=== PATIENT | male | born 1965 | race African-American/Black ===

== ENCOUNTER 2019-10-29 14:51 | Emergency (ER) | payer SELFPAY ==
[2019-10-29 14:55] VITALS: TEMP 98; BMI 26.0
[2019-10-29] MEDS ORDERED: IBUPROFEN 400 MG TABLET (FP) PO ONE ×2 (14:58→15:09)
--- NOTE | 2019-10-29 15:07 | PDOC ---
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 He reports that at the time of onset he was bending over carrying two large heavy buckets. He has no other deficits. He denies IVDU but admits to smoking 1ppd. He denies any incontince, numbness, tinlging, wekaness, or difficulty walking. He denies any recent trauma. He has no other complaints. ROS GENERAL/CONSTITUTIONAL: No fever or chills. No weakness. HEAD, EYES, EARS, NOSE AND THROAT: No change in vision. No ear pain or discharge. No sore throat. CARDIOVASCULAR: No chest pain or shortness of breath RESPIRATORY: No cough, wheezing, or hemoptysis. GASTROINTESTINAL: No nausea, vomiting, diarrhea or constipation. GENITOURINARY: No dysuria, frequency, or change in urination. MUSCULOSKELETAL: + joint or muscle swelling or pain. No neck or back pain. SKIN: No rash NEUROLOGIC: No headache, vertigo, loss of consciousness, or change in strength/sensation. ENDOCRINE: No increased thirst. No abnormal weight change HEMATOLOGIC/LYMPHATIC: No anemia, easy bleeding, or history of blood clots. ALLERGIC/IMMUNOLOGIC: No hives or skin allergy. PE GENERAL: Awake, alert, and fully oriented, in no acute distress HEAD: No signs of trauma, normocephalic, atraumatic EYES: EOMI, sclera anicteric, conjunctiva clear ENT: oropharynx clear without exudates. Moist mucosa NECK: Normal ROM, supple LUNGS: No distress, speaks full sentences, clear to auscultation bilaterally HEART: Regular rate and rhythm, normal S1 and S2, no murmurs, rubs or gallops, peripheral pulses normal and equal bilaterally. BACK: + L paraspinal lumbar and lower thoracic ttp ABDOMEN: Soft, nontender. No guarding, no rebound. No masses EXTREMITIES : Normal inspection, Normal range of motion, no edema. No clubbing or cyanosis. NEUROLOGICAL: Cranial nerves II through XII grossly intact. 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 Consider MSK, less conssitent with herniation, stenossis, epidural abscess or hematoma. Patient has no deficits, no sensory changes, no incontinence. Will dose NSAID here with pcp f/u, time off work, home ibuprofen and strict return precautions Patient stable for discharge. Given follow up instructions and strict return precautions. Patient expressed understanding and agree to plan Negin Mcrae, PGY3 Emergency Medicine Past History - Medical History Allergies/Adverse Reactions: Allergies Allergy/AdvReac Type Severity Reaction Status Date / Time No Known Allergies Allergy Verified 10/29/19 14:52 Home Medications: Ambulatory Orders Ibuprofen 400 mg PO BID #10 tablet 10/29/19 Anemia: No COPD: No CHF: No - Psycho-Social/Smoking History Smoking History: Current every day smoker Number of Cigarettes Smoked Daily: 20 Information on smoking cessation initiated: Yes 'Breaking Loose' booklet given: 10/17/14 - Substance Abuse Hx (Audit-C & DAST Scrn) How often the patient has a drink containing alcohol: Never Score: In Men: 4 or > Positive; In Women: 3 or > Positive: 0 Screen Result (Pos requires Nsg. Audit-10AR): Negative In the last yr the pt used illegal drug/Rx for NonMed reason: No Score: Yes response is considered Positive: 0 Screen Result (Positive result requires Nsg. DAST-10): Negative *Physical Exam - Vital Signs Last Vital Signs Temp Pulse Resp BP Pulse Ox 98 F 84 17 171/114 H 100 10/29/19 14:52 10/29/19 14:52 10/29/19 14:52 10/29/19 14:52 10/29/19 14:52 Discharge - Discharge Information Problems reviewed: Yes Clinical Impression/Diagnosis: Lower back pain Condition: Stable - Additional Discharge Information Prescriptions: Ibuprofen 400 mg PO BID #10 tablet - Follow up/Referral - Patient Discharge Instructions Patient Printed Discharge Instructions: DI for Low Back Pain, DI for Muscle Strain Additional Instructions: You were seen in the ER for complaints of lower back pain. Your exam was most consistent with muscle strain. You were given ibuprofen in the ER. You are to follow up with your Primary Care Doctor for further care. You have a note for work. Take plenty of rest, ibuprofen and use heating pads and cold pads as needed. Return to the ER if you develop worsening back pain, changes in urination and stooling, numbing, tingling, weakness or any other concerning symptoms. - Post Discharge Activity Work/Back to School Note: Back to Work
--- NOTE | 2019-10-29 15:16 | PDOC ---
Attending Attestation - Resident Resident Name: Negin Mcrae - ED Attending Attestation I have performed the following: I have examined & evaluated the patient, The case was reviewed & discussed with the resident, I agree w/resident's findings & plan, Exceptions are as noted - HPI HPI: 10/29/19 15:10 54 yo M p/w L sided low back pain since today. Reports increased heavy lifting and workload at his job over the past 3-4 days. Deneis any numbness or weakness in extremities. No changes in bowel or bladder. No fevers. Denies h/o IVDU. No fevers. No other medical complaints. - Physicial Exam PE: 10/29/19 15:13 General: well appearing, NAD HEENT: NCAT Back: no midline tenderness, no paraspinal tenderness Extremities: warm and well perfused, no LE edema, strength 5/5 dorsiflexion/plantarflexion felxion/extension at knees and hips Neuro: Aox3, speech fluent, face symmetric, gait steady, no focal deficits - Medical Decision Making 10/29/19 15:14 54 yo M with likely msk back pain. No signs/symptoms concerning for cord compression or epidural abscess/hematoma. Plan: -motrin -d/c with return precautions, recommend supportive care at home and PMD f/u This clinical encounter is taking place during a federal and state health care emergency attributable to the novel [place] Virus pandemic. The [place] of the Department of Health and Human Services has declared, pursuant to the Public Health Service Act 319F-3 (42 U.S.C. 247d-6d), that a covered persons activities related to medical countermeasures against COVID-19 will be immune from liability under Federal and State law. Discharge - Discharge Information Problems reviewed: Yes Clinical Impression/Diagnosis: Lower back pain Condition: Stable - Admission No - Additional Discharge Information Prescriptions: Ibuprofen 400 mg PO BID #10 tablet - Follow up/Referral - Patient Discharge Instructions Patient Printed Discharge Instructions: DI for Low Back Pain, DI for Muscle Strain Additional Instructions: You were seen in the ER for complaints of lower back pain. Your exam was most consistent with muscle strain. You were given ibuprofen in the ER. You are to follow up with your Primary Care Doctor for further care. You have a note for work. Take plenty of rest, ibuprofen and use heating pads and cold pads as needed. Return to the ER if you develop worsening back pain, changes in urination and stooling, numbing, tingling, weakness or any other concerning symptoms. - Post Discharge Activity Work/Back to School Note: Back to Work
[2019-10-29 15:30] VITALS: BP 170/101; PULSE 83
== END 2019-10-29 15:28 ==
LOC: FER 14:51
DX: M54.5 Low back pain (principal)
CPT/HCPCS: 99283-25

== ENCOUNTER 2020-11-12 06:49 | Emergency (ER) | payer OTHER ==
[2020-11-12] MEDS ORDERED: ACETAMINOPHEN 500 MG TABLET (FP) PO ONE (06:53)
[2020-11-12] MEDS ORDERED: IBUPROFEN 600 MG TABLET (FP) PO ONE ×2 (07:09→07:12)
[2020-11-12 07:10] VITALS: BMI 27.9
[2020-11-12] MEDS ORDERED: ACETAMINOPHEN 325 MG TABLET (FP) ONE (07:12)
[2020-11-12] MEDS ORDERED: LISINOPRIL 10 MG TABLET PO ONE (08:37)
[2020-11-12] MEDS ORDERED: HYDROCHLOROTHIAZIDE 12.5 MG CAPSULE (FP) PO ONE (08:39)
[2020-11-12] MEDS ORDERED: LISINOPRIL 5 MG TABLET ONE (08:44)
[2020-11-12] MEDS ORDERED: HYDROCHLOROTHIAZIDE 25 MG TABLET (FP) ONE (08:44)
[2020-11-12 10:34] LABS: SARS COV-2 MOLECULAR Presumptive Positive (Negative)
[2020-11-12] MEDS ORDERED: CASIRIVIMAB/IMDEVIMAB 10 ML in SODIUM CHLORIDE 100 ML IVPB ONE (10:40)
[2020-11-12 12:03] LABS: EOS % 6.5 % (0-4.5); HEMATOCRIT 43.2 % (35.4-49); HEMOGLOBIN 14.8 GM/dl (11.7-16.9); LYMPH % 28.9 % (8-40); MCH 30.3 pg (25.7-33.7); MCHC 34.2 g/dl (32.0-35.9); MEAN CELL VOLUME 88.4 fl (80-96); MEAN PLT VOLUME 9.3 fl (7.5-11.1); MONO % 8.9 % (3.8-10.2); NEUT % 53.7 % (42.8-82.8); PLATELET COUNT 126 10^3/uL (134-434); RBC 4.88 M/mm3 (4.00-5.60); RDW 12.9 % (11.9-15.9); WHITE BLOOD COUNT 8.3 K/mm3 (4.0-10.8)
[2020-11-12 12:11] LABS: ALBUMIN 3.9 g/dl (3.4-5.0); BILIRUBIN,TOTAL 0.4 mg/dl (0.2-1); CALCIUM 8.8 mg/dl (8.5-10); CREATININE 1.1 mg/dl (0.55-1.3); TOT PROT 6.4 g/dl (6.4-8.2)
[2020-11-12 12:29] VITALS: TEMP 98.1
[2020-11-12 15:14] VITALS: BP 154/96; PULSE 52
[2020-11-13 09:07] LABS: SARS-CoV-2 NAA Detected (Not Detected)
== END 2020-11-12 15:20 | disposition home or self-care (01) ==
LOC: FER 06:49
DX: Z11.52 Encounter for screening for COVID-19 (principal)
CPT/HCPCS: 36415; 71045-TC-FY; 80053; 85025; 87804; 93005; 99284-25; C9803; M0240; Q0240; U0003; U0005

== ENCOUNTER 2022-05-06 22:27 | Inpatient (IN) | payer OTHER ==
[2022-05-06] MEDS ORDERED: dilTIAZem HCL 50 MG/10 ML - 10 ML VIAL IVPUSH ONE ×2 (22:37→22:48)
[2022-05-06] MEDS ORDERED: SODIUM CHLORIDE 0.9% 500 ML INFUS.BAG IV ONE (22:37)
[2022-05-06] MEDS ORDERED: dilTIAZem HCL 125 MG/25 ML - 25 ML VIAL ONE (22:42)
[2022-05-06] MEDS ORDERED: dilTIAZem HCL 50 MG/10 ML - 10 ML VIAL ONE (22:51)
[2022-05-06 23:03] LABS: HEMATOCRIT 47.4 % (35.4-49); HEMOGLOBIN 16.7 G/dL (11.7-16.9); MCH 30.3 pg (25.7-33.7); MCHC 35.2 g/dl (32.0-35.9); MEAN CELL VOLUME 86.1 fl (80-96); MEAN PLT VOLUME 9.2 fl (7.5-11.1); PLATELET COUNT 208.2 10^3/uL (134-434); RBC 5.51 10^6/uL (4.00-5.60); RDW 14.4 % (11.9-15.9); WHITE BLOOD COUNT 12.5 10^3/uL (4.0-10.8)
[2022-05-06 23:08] LABS: CALCIUM 9.1 mg/dl (8.5-10)
[2022-05-06 23:13] LABS: ALBUMIN 4.4 g/dl (3.4-5.0); BILIRUBIN,TOTAL 0.6 mg/dl (0.2-1); CREATININE 1.3 mg/dl (0.55-1.3); TOT PROT 7.3 g/dl (6.4-8.2)
[2022-05-06] MEDS ORDERED: dilTIAZem HCL 60 MG TABLET PO ONE (23:17)
[2022-05-06 23:22] LABS: INR 0.97 (0.83-1.09); PROTHROMBIN TIME (PATIENT) 11.1 SEC (9.7-13.0)
[2022-05-06] MEDS ORDERED: dilTIAZem HCL 30 MG TABLET ONE (23:22)
[2022-05-06 23:52] LABS: PLATELET ESTIMATE ADEQUATE
[2022-05-07 03:57] VITALS: BMI 29.7
[2022-05-07 09:02] LABS: HEMATOCRIT 42.6 % (35.4-49); HEMOGLOBIN 14.7 G/dL (11.7-16.9); MCH 29.6 pg (25.7-33.7); MCHC 34.4 g/dl (32.0-35.9); MEAN CELL VOLUME 86.1 fl (80-96); MEAN PLT VOLUME 9.8 fl (7.5-11.1); RBC 4.95 10^6/uL (4.00-5.60); RDW 14.8 % (11.9-15.9)
[2022-05-07] MEDS ORDERED: METOPROLOL TARTRATE 25 MG TABLET (FP) PO SCH (10:00)
[2022-05-07] MEDS ORDERED: APIXABAN 5 MG TABLET PO SCH (10:00)
[2022-05-07 10:01] LABS: PHOSPHOROUS 3.9 mg/dl (2.5-4.9)
[2022-05-07] MEDS ORDERED: ATORVASTATIN CA 80 MG TABLET (FP) PO ONE (11:21)
[2022-05-07] MEDS ORDERED: LISINOPRIL 20 MG TABLET PO SCH (11:30)
[2022-05-07] MEDS: ASPIRIN COATED 81 MG TABLET.EC PO SCH (11:57)
[2022-05-07 12:57] LABS: METHADONE, UR NEGATIVE (NEGATIVE)
[2022-05-07 12:58] LABS: COCAINE, UR NEGATIVE (NEGATIVE); OPIATES, URI NEGATIVE (NEGATIVE); PHENCYCLIDINE,URINE NEGATIVE (NEGATIVE); URINE BENZODIAZEPINES NEGATIVE (NEGATIVE)
[2022-05-07] MEDS ORDERED: LISINOPRIL 20 MG TABLET PO ONE (13:02)
[2022-05-07 13:03] LABS: URINE AMPHETAMINES NEGATIVE (NEGATIVE); URINE BARBITURATES NEGATIVE (NEGATIVE)
[2022-05-07] MEDS: METOPROLOL TARTRATE 50 MG TABLET (FP) PO SCH ×2 (17:10→22:36)
[2022-05-07] MEDS: ENOXAPARIN NA (PORCINE) 100 MG/1 ML DISP.SYRIN SQ SCH (22:37)
[2022-05-08 07:58] LABS: BASO % 0.7 % (0-2.0); EOS % 5.6 % (0-4.5); LYMPH % 41.6 % (8-40); MONO % 6.9 % (3.8-10.2); NEUT % 45.2 % (42.8-82.8)
[2022-05-08 08:09] LABS: CALCIUM 8.8 mg/dL (8.5-10.1)
[2022-05-08 08:13] LABS: CREATININE 1.2 mg/dL (0.55-1.3)
[2022-05-08 08:16] LABS: HEMATOCRIT 40.6 % (35.4-49); HEMOGLOBIN 13.7 GM/dL (11.7-16.9); MCH 28.9 pg (25.7-33.7); MCHC 33.8 g/dl (32.0-35.9); MEAN CELL VOLUME 85.7 fl (80-96); MEAN PLT VOLUME 9.6 fl (7.5-11.1); PLATELET COUNT 187 10^3/uL (134-434); RBC 4.74 M/mm3 (4.00-5.60); RDW 13.9 % (11.9-15.9); WHITE BLOOD COUNT 11.1 K/mm3 (4.0-10.0)
[2022-05-08 08:27] LABS: BLOOD UREA NITROGEN 14.3 mg/dL (7-18)
[2022-05-08] MEDS: ASPIRIN COATED 81 MG TABLET.EC PO SCH (09:51)
[2022-05-08] MEDS: METOPROLOL TARTRATE 50 MG TABLET (FP) PO SCH ×2 (09:51→21:55)
[2022-05-08] MEDS: LISINOPRIL 20 MG TABLET PO SCH (09:51)
[2022-05-08] MEDS: ENOXAPARIN NA (PORCINE) 100 MG/1 ML DISP.SYRIN SQ SCH ×2 (09:52→21:56)
[2022-05-08] MEDS ORDERED: amLODIPine BESYLATE 5 MG TABLET (FP) PO SCH (10:00)
[2022-05-08 13:03] LABS: ALBUMIN 3.4 g/dl (3.4-5.0); BILIRUBIN,TOTAL 0.6 mg/dL (0.2-1)
[2022-05-08] MEDS ORDERED: amLODIPine BESYLATE 5 MG TABLET (FP) PO ONE (15:59)
[2022-05-08] MEDS: ATORVASTATIN CA 80 MG TABLET (FP) PO SCH (21:55)
[2022-05-08] MEDS ORDERED: hydrALAZINE HCL 20 MG/ML VIAL IVPUSH ONE (23:45)
[2022-05-09] MEDS ORDERED: hydrALAZINE HCL 20 MG/ML VIAL IVPUSH ONE (01:37)
[2022-05-09] MEDS: amLODIPine BESYLATE 5 MG TABLET (FP) PO SCH (07:48)
[2022-05-09] MEDS ORDERED: REGADENOSON 0.4 MG/5 ML PRE-FILLED SYRINGE IVPUSH ONE ×2 (09:44→10:00)
[2022-05-09] MEDS ORDERED: amLODIPine BESYLATE 5 MG TABLET (FP) PO SCH (10:00)
[2022-05-09] MEDS: ENOXAPARIN NA (PORCINE) 100 MG/1 ML DISP.SYRIN SQ SCH (12:24)
[2022-05-09] MEDS: METOPROLOL TARTRATE 50 MG TABLET (FP) PO SCH ×2 (12:25→21:09)
[2022-05-09] MEDS: LISINOPRIL 20 MG TABLET PO SCH (12:25)
[2022-05-09] MEDS: ASPIRIN COATED 81 MG TABLET.EC PO SCH (12:25)
[2022-05-09] MEDS ORDERED: CHLORTHALIDONE 25 MG TABLET PO SCH (13:00)
[2022-05-09] MEDS: SPIRONOLACTONE 25 MG TABLET PO SCH (14:00)
[2022-05-09 19:16] LABS: BASO % 2.1 % (0-2.0); EOS % 4.9 % (0-4.5); HEMATOCRIT 46.1 % (35.4-49); HEMOGLOBIN 15.7 GM/dL (11.7-16.9); LYMPH % 29.8 % (8-40); MCH 29.2 pg (25.7-33.7); MCHC 34.1 g/dl (32.0-35.9); MEAN CELL VOLUME 85.8 fl (80-96); MEAN PLT VOLUME 10.1 fl (7.5-11.1); MONO % 6.1 % (3.8-10.2); NEUT % 57.1 % (42.8-82.8); PLATELET COUNT 221 10^3/uL (134-434); RBC 5.38 M/mm3 (4.00-5.60); RDW 13.9 % (11.9-15.9); WHITE BLOOD COUNT 12.2 K/mm3 (4.0-10.0)
[2022-05-09 19:38] LABS: CALCIUM 9.3 mg/dL (8.5-10.1)
[2022-05-09 19:39] LABS: BLOOD UREA NITROGEN 19.9 mg/dL (7-18)
[2022-05-09 19:41] LABS: CREATININE 1.3 mg/dL (0.55-1.3)
[2022-05-09 19:43] LABS: BILIRUBIN,TOTAL 0.5 mg/dL (0.2-1); TOT PROT 7.5 g/dl (6.4-8.2)
[2022-05-09 19:47] LABS: ALBUMIN 4.1 g/dl (3.4-5.0)
[2022-05-09] MEDS: ATORVASTATIN CA 80 MG TABLET (FP) PO SCH (21:09)
[2022-05-09] MEDS: APIXABAN 5 MG TABLET PO SCH (21:10)
[2022-05-10 07:59] LABS: MCH 29.3 pg (25.7-33.7); MCHC 34.2 g/dl (32.0-35.9); MEAN CELL VOLUME 85.8 fl (80-96); MEAN PLT VOLUME 9.7 fl (7.5-11.1); PLATELET COUNT 205 10^3/uL (134-434); RBC 5.13 M/mm3 (4.00-5.60)
[2022-05-10 08:20] LABS: BLOOD UREA NITROGEN 16.7 mg/dL (7-18); CALCIUM 8.8 mg/dL (8.5-10.1)
[2022-05-10 08:21] LABS: ALBUMIN 3.6 g/dl (3.4-5.0)
[2022-05-10 08:24] LABS: CREATININE 1.2 mg/dL (0.55-1.3)
[2022-05-10 08:25] LABS: BILIRUBIN,TOTAL 0.5 mg/dL (0.2-1); TOT PROT 6.6 g/dl (6.4-8.2)
[2022-05-10] MEDS: APIXABAN 5 MG TABLET PO SCH (09:18)
[2022-05-10] MEDS: LISINOPRIL 20 MG TABLET PO SCH (09:18)
[2022-05-10] MEDS: amLODIPine BESYLATE 5 MG TABLET (FP) PO SCH (09:21)
[2022-05-10] MEDS: SPIRONOLACTONE 25 MG TABLET PO SCH (09:22)
[2022-05-10 09:23] VITALS: BP 125/86; PULSE 18; TEMP 98.5
[2022-05-10 09:40] VITALS: RESP 18
[2022-05-10] MEDS ORDERED: ATORVASTATIN CA 40 MG TABLET (FP) PO SCH (10:16)
[2022-05-10] MEDS ORDERED: amLODIPine BESYLATE 10 MG TABLET (FP) PO SCH (10:22)
== END 2022-05-10 12:02 | disposition home or self-care (01) | DRG 199 ==
LOC: FER 22:27 → FM/S 05-07 01:43 → J4W 05-07 22:10
PROVIDERS: ADMIT Internal Medicine; ATTEND Internal Medicine
DX: I16.0 Hypertensive urgency (principal); I24.8 Other forms of acute ischemic heart disease; E78.5 Hyperlipidemia, unspecified; I48.91 Unspecified atrial fibrillation
CPT/HCPCS: 0241U-QW; 36415; 71045-TC-FY; 76775-TC; 76856-TC; 78452-TC; 80048; 80053; 80061; 80307; 81003; 81015; 82550; 82553; 83036; 83735; 84100; 84443; 84484; 85025; 85027; 85610; 93005; 93010; 93017; 93306-TC; 99285-25; A9502; J2785

== ENCOUNTER 2022-11-10 18:05 | Emergency (ER) | payer OTHER ==
[2022-11-10 18:12] VITALS: TEMP 100.5; BMI 29.7
[2022-11-10] MEDS ORDERED: ACETAMINOPHEN 1000 MG/100 ML BAG IVPB ONE (19:08)
[2022-11-10] MEDS ORDERED: SPIRONOLACTONE 25 MG TABLET PO ONE (19:17)
[2022-11-10] MEDS ORDERED: ATORVASTATIN CA 80 MG TABLET (FP) PO ONE (19:17)
[2022-11-10] MEDS ORDERED: hydrALAZINE HCL 50 MG TABLET (FP) PO ONE (19:20)
[2022-11-10] MEDS ORDERED: HYDROCHLOROTHIAZIDE 25 MG TABLET (FP) PO ONE (19:21)
[2022-11-10] MEDS ORDERED: VALSARTAN 160 MG TABLET PO ONE (19:21)
[2022-11-10] MEDS ORDERED: HYDROCHLOROTHIAZIDE 25 MG TABLET (FP) ONE (19:40)
[2022-11-10] MEDS ORDERED: ATORVASTATIN CA 80 MG TABLET (FP) ONE ×2 (19:40→19:41)
[2022-11-10] MEDS ORDERED: VALSARTAN 80 MG TABLET ONE (19:40)
[2022-11-10] MEDS ORDERED: ACETAMINOPHEN INJECTION 100 ML IVPB ONE (19:41)
[2022-11-10] MEDS ORDERED: SPIRONOLACTONE 25 MG TABLET ONE (19:41)
[2022-11-10] MEDS ORDERED: hydrALAZINE HCL 50 MG TABLET (FP) ONE (19:41)
[2022-11-10 20:03] VITALS: RESP 16
[2022-11-10 20:23] LABS: BASO % 0.8 % (0-2.0); HEMATOCRIT 47.8 % (35.4-49); HEMOGLOBIN 16.3 GM/dL (11.7-16.9); LYMPH % 10.4 % (8-40); MCH 29.3 pg (25.7-33.7); MCHC 34.2 g/dl (32.0-35.9); MEAN CELL VOLUME 85.7 fl (80-96); MEAN PLT VOLUME 9.9 fl (7.5-11.1); MONO % 14.8 % (3.8-10.2); PLATELET COUNT 167 10^3/uL (134-434); RBC 5.58 M/mm3 (4.00-5.60); WHITE BLOOD COUNT 9.4 K/mm3 (4.0-10.0)
[2022-11-10] MEDS ORDERED: METHOCARBAMOL 500 MG TABLET PO ONE (20:34)
[2022-11-10] MEDS ORDERED: hydrALAZINE HCL 20 MG/ML VIAL IVPUSH ONE (20:34)
[2022-11-10] MEDS ORDERED: LIDOCAINE 5% TOPICAL PATCH TP ONE (20:34)
[2022-11-10 20:35] LABS: POTASSIUM 3.9 mmol/L (3.5-5.1)
[2022-11-10 20:38] LABS: BLOOD UREA NITROGEN 13.2 mg/dL (7-18); CALCIUM 9.2 mg/dL (8.5-10.1)
[2022-11-10 20:41] LABS: CREATININE 1.5 mg/dL (0.55-1.3)
[2022-11-10 20:42] LABS: BILIRUBIN,TOTAL 0.3 mg/dL (0.2-1); TOT PROT 7.5 g/dl (6.4-8.2)
[2022-11-10] MEDS ORDERED: hydrALAZINE HCL 20 MG/ML VIAL ONE (20:50)
[2022-11-10] MEDS ORDERED: METHOCARBAMOL 500 MG TABLET ONE (20:50)
[2022-11-10] MEDS ORDERED: APIXABAN 5 MG TABLET ONE (20:50)
[2022-11-10] MEDS ORDERED: LIDOCAINE 5% TOPICAL PATCH ONE (20:51)
[2022-11-10 21:04] VITALS: BP 146/96; PULSE 80
[2022-11-10] MEDS ORDERED: SODIUM CHLORIDE 0.9% 500 ML INFUS.BAG IV ONE (21:12)
[2022-11-10] MEDS ORDERED: APIXABAN 5 MG TABLET PO SCH (22:00)
== END 2022-11-11 | disposition home or self-care (01) ==
LOC: JER 18:05
PROC: 3E033NZ Introduction of Analgesics, Hypnotics, Sedatives into Peripheral Vein, Percutaneous Approach (ICD-10-PCS; principal; 2022-11-10)
DX: R06.02 Shortness of breath (principal); M79.10 Myalgia, unspecified site; M54.50 Low back pain, unspecified; R10.9 Unspecified abdominal pain; I10 Essential (primary) hypertension; U07.1 COVID-19; R53.81 Other malaise; R53.1 Weakness; R00.2 Palpitations; R61 Generalized hyperhidrosis; R51.9 Headache, unspecified; G89.29 Other chronic pain; H04.209 Unspecified epiphora, unspecified side; R74.8 Abnormal levels of other serum enzymes; R79.89 Other specified abnormal findings of blood chemistry
CPT/HCPCS: 0241U-QW; 36415; 71046-TC-FY; 80053; 84484; 85025; 93005; 93010; 99285-25

== ENCOUNTER 2022-12-24 22:33 | Observation (INO) | payer OTHER ==
[2022-12-24 22:44] VITALS: BMI 28.7
[2022-12-24] MEDS ORDERED: ASPIRIN 81 MG CHEWABLE TABLETS PO ONE (22:51)
[2022-12-24] MEDS ORDERED: dilTIAZem HCL 50 MG/10 ML - 10 ML VIAL IVPUSH ONE (23:11)
[2022-12-24] MEDS ORDERED: dilTIAZem HCL 125 MG/25 ML - 25 ML VIAL ONE (23:17)
[2022-12-24] MEDS ORDERED: ASPIRIN 81 MG CHEWABLE TABLETS ONE (23:17)
[2022-12-24 23:55] LABS: BASO % 0.8 % (0-2.0); HEMATOCRIT 45.6 % (35.4-49); HEMOGLOBIN 15.7 GM/dL (11.7-16.9); LYMPH % 35.7 % (8-40); MCH 29.1 pg (25.7-33.7); MCHC 34.4 g/dl (32.0-35.9); MEAN CELL VOLUME 84.8 fl (80-96); MEAN PLT VOLUME 9.6 fl (7.5-11.1); MONO % 6.6 % (3.8-10.2); NEUT % 52.9 % (42.8-82.8); PLATELET COUNT 219 10^3/uL (134-434); RBC 5.38 M/mm3 (4.00-5.60); RDW 14.1 % (11.9-15.9); WHITE BLOOD COUNT 12.5 K/mm3 (4.0-10.0)
[2022-12-25 00:06] LABS: INR 0.96 (0.83-1.09); PROTHROMBIN TIME (PATIENT) 11.1 SEC (9.7-13.0)
[2022-12-25 00:08] LABS: ACTIVATED PTT 30.2 SECONDS (25.2-36.5)
[2022-12-25 00:29] LABS: POTASSIUM 3.8 mmol/L (3.5-5.1)
[2022-12-25 00:31] LABS: CALCIUM 8.7 mg/dL (8.5-10.1); MAGNESIUM 1.9 mg/dL (1.8-2.4)
[2022-12-25 00:33] LABS: ALBUMIN 3.5 g/dl (3.4-5.0); BLOOD UREA NITROGEN 19.7 mg/dL (7-18)
[2022-12-25 00:35] LABS: CREATININE 1.4 mg/dL (0.55-1.3)
[2022-12-25 00:36] LABS: TOT PROT 6.8 g/dl (6.4-8.2)
[2022-12-25 00:37] LABS: BILIRUBIN,TOTAL 0.2 mg/dL (0.2-1)
[2022-12-25] MEDS ORDERED: ATORVASTATIN CA 40 MG TABLET (FP) PO ONE (01:34)
[2022-12-25] MEDS ORDERED: APIXABAN 2.5 MG TABLET PO ONE (01:36)
[2022-12-25] MEDS ORDERED: APIXABAN 2.5 MG TABLET ONE (01:47)
[2022-12-25] MEDS ORDERED: ATORVASTATIN CA 40 MG TABLET (FP) ONE (01:47)
[2022-12-25] MEDS ORDERED: SODIUM CHLORIDE 1,000 ML IV SCH (06:15)
[2022-12-25 06:50] LABS: BASO % 1.1 % (0-2.0); EOS % 4.5 % (0-4.5); HEMATOCRIT 41.8 % (35.4-49); LYMPH % 32.7 % (8-40); MCH 28.9 pg (25.7-33.7); MCHC 33.4 g/dl (32.0-35.9); MEAN CELL VOLUME 86.4 fl (80-96); MONO % 7.9 % (3.8-10.2); NEUT % 53.8 % (42.8-82.8); PLATELET COUNT 202 10^3/uL (134-434); RBC 4.84 M/mm3 (4.00-5.60); RDW 14.1 % (11.9-15.9); WHITE BLOOD COUNT 10.9 K/mm3 (4.0-10.0)
[2022-12-25] MEDS ORDERED: INSULIN SLIDING SCALE (NOVOLOG) 1 VIAL SQ SCH (07:00)
[2022-12-25 07:11] LABS: POTASSIUM 4.2 mmol/L (3.5-5.1)
[2022-12-25 07:13] LABS: BLOOD UREA NITROGEN 18.2 mg/dL (7-18); CALCIUM 8.5 mg/dL (8.5-10.1); MAGNESIUM 1.8 mg/dL (1.8-2.4)
[2022-12-25 07:14] LABS: ALBUMIN 3.3 g/dl (3.4-5.0)
[2022-12-25 07:16] LABS: PHOSPHOROUS 3.9 mg/dL (2.5-4.9)
[2022-12-25 07:17] LABS: CREATININE 1.3 mg/dL (0.55-1.3)
[2022-12-25 07:18] LABS: BILIRUBIN,TOTAL 0.2 mg/dL (0.2-1); TOT PROT 6.4 g/dl (6.4-8.2)
[2022-12-25 08:54] VITALS: PULSE 66; RESP 20; TEMP 97.7
[2022-12-25 08:55] LABS: PH,URINE 5.5 (5.0-8.0); URINE APPEARANCE Clear; URINE BILIRUBIN Negative (NEGATIVE); URINE COLOR Yellow; URINE GLUCOSE (UA) Negative (NEGATIVE); URINE KETONE Negative (NEGATIVE); URINE LEUK ESTERASE Negative (NEGATIVE); URINE NITRITE Negative (NEGATIVE); URINE PROTEIN Negative (NEGATIVE); URINE UROBILINOGEN 0.2 mg/dL (0.2-1.0)
[2022-12-25] MEDS ORDERED: amLODIPine BESYLATE 10 MG TABLET (FP) PO SCH (10:00)
[2022-12-25] MEDS ORDERED: NICOTINE 14 MG/24 HOURS TOPICAL PATCH TD SCH (10:00)
[2022-12-25] MEDS ORDERED: APIXABAN 5 MG TABLET PO SCH (10:00)
[2022-12-25] MEDS ORDERED: LISINOPRIL 20 MG TABLET PO SCH (10:00)
[2022-12-25] MEDS ORDERED: SPIRONOLACTONE 25 MG TABLET PO SCH (10:00)
[2022-12-25 11:00] VITALS: BP 165/111
[2022-12-25] MEDS ORDERED: LEVALBUTEROL HCL 0.63 MG/3 ML VIAL.NEB. IH PRN (12:43)
[2022-12-25] MEDS ORDERED: hydrALAZINE HCL 20 MG/ML VIAL IVPUSH PRN (12:44)
[2022-12-25] MEDS ORDERED: predniSONE 20 MG TABLET (UD) PO SCH (12:45)
[2022-12-25] MEDS ORDERED: hydrALAZINE HCL 50 MG TABLET (FP) PO SCH (14:00)
[2022-12-25] MEDS ORDERED: IPRATROPIUM BR 0.02% 0.5 MG/2.5 ML VIAL.NEB. NEB SCH (16:00)
[2022-12-25] MEDS ORDERED: ATORVASTATIN CA 40 MG TABLET (FP) PO SCH (22:00)
[2022-12-25] MEDS ORDERED: BUDESONIDE/FORMETEROL FUMARATE 160/4.5 mcg INHALER IH SCH (22:00)
== END 2022-12-25 12:14 | disposition left against medical advice (07) ==
LOC: JER 22:33 → JERBED 12-25 04:23
PROVIDERS: ADMIT Internal Medicine; ATTEND Internal Medicine
PROC: 3E033GC Introduction of Other Therapeutic Substance into Peripheral Vein, Percutaneous Approach (ICD-10-PCS; principal; 2022-12-25)
DX: I48.0 Paroxysmal atrial fibrillation (principal); Z91.148 Patient's other noncompliance with medication regimen for other reason; R73.9 Hyperglycemia, unspecified; R35.0 Frequency of micturition; I12.9 Hypertensive chronic kidney disease with stage 1 through stage 4 chronic kidney disease, or unspecified chronic kidney disease; R07.89 Other chest pain; N18.9 Chronic kidney disease, unspecified; E78.5 Hyperlipidemia, unspecified; F17.210 Nicotine dependence, cigarettes, uncomplicated
CPT/HCPCS: 36415; 71045-TC-FY; 80053; 80061; 81003; 82550; 82553; 82962; 83735; 84100; 84439; 84443; 84460; 84484; 85025; 85610; 85730; 93005; 93010; 96374; 99285-25; G0378

== ENCOUNTER 2024-11-21 06:10 | Day surgery (SDC) | payer OTHER ==
[2024-11-03 11:25] VITALS: BMI 31.4
[2024-11-21 09:19] VITALS: TEMP 97.7
[2024-11-21 09:28] VITALS: RESP 18
[2024-11-21 09:44] VITALS: PULSE 56
[2024-11-21 10:26] VITALS: BP 130/72
== END 2024-11-21 09:50 | disposition home or self-care (01) ==
LOC: JASU-ENDO 06:10
PROVIDERS: ATTEND Student in an Organized Health Care Education/Training Program
PROC: 0DBM8ZX Excision of Descending Colon, Via Natural or Artificial Opening Endoscopic, Diagnostic (ICD-10-PCS; principal; 2024-11-21 08:30)
DX: Z12.11 Encounter for screening for malignant neoplasm of colon (principal); K63.5 Polyp of colon
CPT/HCPCS: 88305-TC